=== PATIENT | female | born 1955 | race American Indian/Alaskan Native ===

== ENCOUNTER 2017-11-01 10:00 | Outpatient (CLI) | payer BC, OTHER | END 2017-11-01 10:01 | disposition home or self-care (01) | LOC: LABHHL 10:00 | PROVIDERS: ATTEND Surgery | DX: D05.12 Intraductal carcinoma in situ of left breast (principal) | CPT/HCPCS: 88305; 88342; 88361 ==

== ENCOUNTER 2017-11-15 12:24 | Outpatient (CLI) | payer BC ==
--- NOTE | 2017-11-18 16:15 | Magnetic Resonance Report ---
BILATERAL BREAST MRI WITHOUT AND WITH CONTRAST: 11/15/17 12:24:00 CLINICAL: Newly diagnosed left breast cancer. 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 COMPARISON:03/21/17, 10/02/17 and 10/31/17 mammograms.. TECHNIQUE: Axial 1.0-mm T1 without, axial high resolution 2.0-mm T2 and axial 1.0-mm dynamic Vibrant high-resolution postcontrast T1 fat saturation sequences on a 1.5 Blanca magnet. The examination was performed with an 8 channel dedicated [place] breast coil. Post processing with CAD and subtraction was performed on an [employer] workstation. 16.0 cc of Multihance was injected without incident for the contrast portion of the exam. Consent was obtained prior to the administration of the contrast. FINDINGS: Right: Minimal background parenchymal enhancement. No mass or suspicious enhancement of the right breast. No suspicious right axillary or right internal mammary lymph nodes. Left: Mild background parenchymal enhancement. The recent stereotactic biopsy site and the site of the known cancer is at 4 o'clock approximately 7 cm from the nipple and 5.6 cm from the chest wall. Focal non-mass enhancement at the posterior superior aspect of a postbiopsy hematoma measures 6.0 x 5.1 x 3.8 mm. It demonstrates heterogeneous enhancement with mixed kinetics, 111% peak enhancement, 23% type I persistent and 77% type II plateau waveforms and 0% type III washout. The post biopsy hematoma at the stereotactic biopsy site measures 2.0 x 1.9 x 2.3 cm. An irregular suspicious enhancing mass at 4 o'clock 8.6 cm from the nipple and 3.5 cm from the chest wall measures 14.1 x 11.5 x 5.0 mm. It demonstrates heterogeneous enhancement with mixed kinetics, 128% peak enhancement, 49% type I persistent, 51% type II plateau and 0% type III washout. A group of loosely clustered punctate, amorphous and mildly pleomorphic calcifications on the mammogram correlate with this additional suspicious lesion of the left breast. No suspicious left axillary or left internal mammary lymph nodes. IMPRESSION: 1. Known left breast cancer and one additional suspicious lesion of the left breast with a nearly identical enhancement pattern and with corresponding calcifications on the mammogram. This lesion is approximately 2 cm posterior to the known cancer and together these 2 lesions span approximately 4-5 cm. 2. No suspicious lymph nodes. 3. Negative right breast. RIGHT BI-RADS 1 -- Negative LEFT BI-RADS 6 -- Known Cancer
== END 2017-11-15 12:25 | disposition home or self-care (01) ==
LOC: SPVIMAG 12:24
PROVIDERS: ATTEND Surgery
DX: C50.312 Malignant neoplasm of lower-inner quadrant of left female breast (principal)
CPT/HCPCS: A9577; C8908; 77059